=== PATIENT | male | born 1995 | race Caucasian/White ===

== ENCOUNTER 2017-09-01 18:45 | Emergency (ER) | payer SELFPAY ==
[~2017-09-01] VITALS: Ht 185.4 cm; Wt 75.0 kg
[2017-09-01 18:47] VITALS: BP 154/87; PULSE 101; RESP 12; TEMP 99.6; O2SAT 96
[2017-09-01] MEDS ORDERED: PENI500T PO (19:40)
--- NOTE | 2017-09-01 19:44 | PD ---
HPI Chief Complaint: Cold / Flu Symptoms Time Seen by Provider: 19:36 Travel History International Travel<30 days: No Contact w/Intl Traveler<30days: No Traveled to known affect area: No History of Present Illness HPI 22-year-old white male presents to emergency Department with complaints of coughing congestion over the past 4 days. He has had subjective fever and chills, runny nose, congestion, sore throat, cough with yellow sputum. He has had some posttussive emesis. He denies any nausea vomiting. No abdominal pain. No dysuria or frequency. No rashes or lesions. Symptoms are moderate. Worse with coughing and swallowing. No alleviating factors. PFSH Past Medical History Medical History: Denies Significant Hx Immunizations Current: Yes Tetanus Vaccination: Unknown Influenza Vaccination: No Past Surgical History Surgical History: No Previous Surgery Social History Alcohol Use: No Tobacco Use: No Substance Use: No Allergies-Medications (Allergen,Severity, Reaction): Coded Allergies: No Known Allergies (Unverified , 09/01/17) Reported Meds & Prescriptions Reported Meds & Active Scripts Active Penicillin V Potassium 500 Mg Tab 500 Mg PO Q12HR 10 Days Review of Systems Except as stated in HPI: all other systems reviewed are Neg Physical Exam Narrative GENERAL: Well-developed, well-nourished in no acute distress. Nontoxic appearing. HEAD: Normocephalic, atraumatic. EYES: Pupils equal round and reactive. Extraocular motions intact. No scleral icterus. No injection or drainage. ENT: TMs clear without erythema. The external auditory canals clear. Nose: clear . Posterior pharynx is pink and moist. No tonsillar edema or exudate. Uvula midline. Airway patent. NECK: Trachea midline.Supple, nontender, moves head freely. No central bony tenderness or spasm. CARDIOVASCULAR: Regular rate and rhythm without murmurs, gallops, or rubs. RESPIRATORY: Clear to auscultation. Breath sounds equal bilaterally. No wheezes , rales, or rhonchi. GASTROINTESTINAL: Abdomen soft, non-tender, nondistended. No hepato-splenomegaly , or palpable masses. No guarding. EXTREMITIES: No clubbing, cyanosis, or edema. No joint tenderness, effusion, or edema noted. BACK: Nontender without deformity or crepitance. No flank tenderness. Data Data Last Documented VS Vital Signs Date Time Temp Pulse Resp B/P (MAP) Pulse Ox O2 Delivery O2 Flow Rate FiO2 09/01/17 18:47 99.6 101 12 154/87 (109) 96 Orders Orders Ed Discharge Order (09/01/17 19:38) MDM Medical Decision Making Medical Screen Exam Complete: Yes Emergency Medical Condition: Yes Medical Record Reviewed: Yes Differential Diagnosis MDM: High Differential diagnoses: Pneumonia, bronchitis, URI, influenza, strep throat Narrative Course Patient has symptoms of a viral URI. I see no bacterial etiology. He'll be treated symptomatically. I have agreed to give him a prescription for Pen-Vee K for watch and wait for his sore throat. Diagnosis Primary Impression: Bronchitis Patient Instructions: General Instructions Departure Forms: Tests/Procedures, Work Release Special Instructions: No work 2-3 days. Additional Instructions: Rest. Increase fluids. Tylenol and Advil. Robitussin-DM. Pen-Vee K. May take the prescription in the next few days if symptoms worsen of sore throat develop persistent fever. Followup with your Dr. in one week. Return to the ER for any problems. Med/Other Pt SpecificInfo: Prescription(s) given Scripts Penicillin V Potassium (Penicillin V Potassium) 500 Mg Tab 500 MG PO Q12HR for Infection for 10 Days, TAB 0 Refills Prov: Cara Elkins MD 09/01/17 Disposition: 01 DISCHARGE HOME Condition: Stable Deepak Lazar Sep 01, 2017 19:44
== END 2017-09-01 19:56 | disposition home or self-care (01) ==
LOC: NEPD 18:45
DX: J40 Bronchitis, not specified as acute or chronic (principal); R11.10 Vomiting, unspecified
CPT/HCPCS: 99283